=== PATIENT | female | born 1955 | race Caucasian/White ===

== ENCOUNTER → 2019-06-28 | Day surgery (SDC) | payer MEDICARE, BC ==
[2019-06-19 16:57] LABS: BASOPHILS % 0.4 % (0.0-1.0); EOSINOPHILS # (AUTO) 0.4 (0.0-0.4); EOSINOPHILS % 3.9 % (0.0-6.0); HEMATOCRIT 37.8 % (34.2-44.1); HEMOGLOBIN 12.7 g/dL (12.0-16.0); LYMPHOCYTES # (AUTO) 3.9 (1.0-3.2); MEAN CORPUSCULAR HEMOGLOBIN 32.3 pg (28-32); MEAN CORPUSCULAR HGB CONC 33.6 g/dL (31-35); MEAN CORPUSCULAR VOLUME 96.2 fL (81-99); MONOCYTES # (AUTO) 1.2 (0.2-0.8); MONOCYTES % 12.2 % (4.4-11.3); NEUTROPHILS % 42.2 % (38.7-80.0); PLATELET COUNT 303 x10e3/uL (140-360); RED BLOOD COUNT 3.93 x10e6/uL (3.6-5.1); RED CELL DISTRIBUTION WIDTH 12.7 % (11.7-14.4)
[~2019-06-28] MED LIST: ASPIRIN81 MG PO; ATENOLOL50 MG PO; ESTRADIOL1 MG PO; FENTANYL CITRATE/PF 100MCG/2 ML INJ ONE; FIBER LAX625 MG PO; HYDROCODONE PO; HYOSCYAMINE 0.125 MG TAB ONE; IRON159 MG PO; KETAMINE HCL INJ 50 MG/ML 10 ML VIAL ONE; LIPITOR10 MG PO; MELOXICAM7.5 MG PO; MIDAZOLAM HCL 2 MG/2 ML VIAL ONE; MULTI-VITAMIN1 EACH PO; PROPOFOL IV EMULSION 10 MG/ML 50 ML VIAL ONE; TYLENOL; VITAMIN B-121000 MC1 PO; VITAMIN D32000 UNI1 PO
[2019-06-28 11:25] VITALS: BP 111/81
--- NOTE | 2019-06-28 17:33 | Operative Report ---
DATE OF PROCEDURE: 06/28/2019 SURGEON: Bridger Mcdermott MD PROCEDURES: EGD with esophageal dilatation and colonoscopy with biopsies. INDICATIONS FOR EGD: Dysphagia. INDICATIONS FOR COLONOSCOPY: Surveillance colonoscopy, history of rectal polyp. MEDICATIONS: The patient was done under MAC, please see anesthesiologist's note. PROCEDURE IN DETAIL: With the patient in left lateral decubitus position, flexible fiberoptic Olympus gastroscope was introduced into the esophagus under direct visualization without any difficulty. There was some patchy erythema noted in the distal esophagus. A mild stricture was noted at the GE junction that was dilated to size 52-[place] Hernández. The scope was then advanced with ease into the stomach. Mucosa overlying the antrum and the body revealed some patchy erythema and low-grade edema and biopsies were obtained and sent to stain for H pylori. A minute ulcer was noted in the antrum along the posterior wall without active bleeding or stigmata of recent hemorrhage and biopsies were obtained. The pylorus was intubated with ease and the scope was advanced all the way to the second portion of the duodenum. The scope was then withdrawn slowly and mucosa overlying the proximal second portion and the duodenal bulb grossly appeared to be within normal limits. The scope was then withdrawn back into the stomach and retroflexed and mucosa overlying the fundus and the cardia appeared to be within normal limits. The scope was then straightened out, it was subsequently withdrawn. The patient tolerated the procedure well. IMPRESSION: 1. Esophageal stricture at GE junction dilated to size 52-[place] Hernández. 2. Gastritis, biopsied. Biopsies sent to stain for Helicobacter pylori. 3. Gastric ulcer, minute, antrum, posterior wall without active bleeding or stigmata of recent hemorrhage. Biopsies were obtained. PLAN: Follow up histology. Initiate Protonix 40 mg one p.o. q.a.m. a.c. DESCRIPTION OF PROCEDURE: The patient was then turned around and after adequate lubrication of the anal canal, a flexible fiberoptic Olympus colonoscope was inserted into the rectum with ease and advanced all the way to the cecum. The scope was then withdrawn slowly and mucosa overlying the cecum, ascending colon, transverse colon grossly other than for minimal diverticulosis appeared to be within normal limits. The descending colon appeared somewhat ahaustral and there were some patchy areas of erythema and low-grade edema and biopsies were obtained. Diverticular disease was noted also in the descending colon and sigmoid colon. The rectum appeared to be within normal limits. The scope was then retroflexed into the distal rectum and small internal hemorrhoids were noted, none of which was actively bleeding. The scope was then straightened out, it was subsequently withdrawn. The patient tolerated the procedure well. IMPRESSION: 1. Mild segmental colitis, descending colon, biopsies obtained. 2. Diverticulosis. 3. Internal hemorrhoids, none actively bleeding. PLAN: Follow up histology. Initiate high-fiber, low-fat diet. Initiate high-fiber supplement. Start Visbiome one p.o. b.i.d. The patient might benefit from a followup colonoscopy in 5 years. Bridger Mcdermott MD [facility] [place] /[id number] cc: Asya Velarde MD
== END | disposition home or self-care (01) ==
LOC: OR 06:25
PROVIDERS: ATTEND Internal Medicine Gastroenterology
DX: K22.2 Esophageal obstruction (principal); K29.50 Unspecified chronic gastritis without bleeding; K25.9 Gastric ulcer, unspecified as acute or chronic, without hemorrhage or perforation; K50.10 Crohn's disease of large intestine without complications; K57.30 Diverticulosis of large intestine without perforation or abscess without bleeding; K64.8 Other hemorrhoids; I10 Essential (primary) hypertension; Z01.810 Encounter for preprocedural cardiovascular examination; Z01.812 Encounter for preprocedural laboratory examination; Z79.82 Long term (current) use of aspirin
CPT/HCPCS: 36415; 43239; 43450; 45380; 85025; 88305; 88312; 93005; J2250; J2704; J3010; 45378

== ENCOUNTER → 2020-02-26 | Day surgery (SDC) | payer MEDICARE, BC ==
[2020-02-20 14:27] LABS: BASOPHILS % 0.3 % (0.0-1.0); EOSINOPHILS # (AUTO) 0.5 (0.0-0.4); EOSINOPHILS % 5.1 % (0.0-6.0); HEMATOCRIT 36.9 % (34.2-44.1); HEMOGLOBIN 12.3 g/dL (12.0-16.0); LYMPHOCYTES # (AUTO) 2.8 (1.0-3.2); LYMPHOCYTES % 31.9 % (18.0-39.1); MEAN CORPUSCULAR HEMOGLOBIN 32.2 pg (28-32); MEAN CORPUSCULAR HGB CONC 33.3 g/dL (31-35); MEAN CORPUSCULAR VOLUME 96.6 fL (81-99); MONOCYTES # (AUTO) 1.1 (0.2-0.8); NEUTROPHILS # (AUTO) 4.5 (2.1-6.9); NEUTROPHILS % 50.3 % (38.7-80.0); PLATELET COUNT 263 x10e3/uL (140-360); RED BLOOD COUNT 3.82 x10e6/uL (3.6-5.1); RED CELL DISTRIBUTION WIDTH 12.7 % (11.7-14.4)
--- NOTE | 2020-02-20 14:38 | Diagnostic Imaging Report ---
EXAMINATION: CHEST 2 VIEWS INDICATION: Pre-operative COMPARISON: Chest radiograph 04/10/2011 FINDINGS: LINES/TUBES:None LUNGS:The lungs are well-inflated. No focal consolidation or pulmonary edema. PLEURA:No pleural effusion or pneumothorax. MEDIASTINUM:The cardiomediastinal silhouette appears normal in size and shape. BONES/SOFT TISSUES:No acute osseous injury. ABDOMEN:No free air under the diaphragm. IMPRESSION: No focal pneumonia or pulmonary edema. Signed by: Chris Carrizales MD on 02/20/2020 2:35 PM
[~2020-02-26] MED LIST changes: +BACITRACIN ZINC 15 GM OINT ONE; +BUPIVACAINE HCL 0.5% INJ 30 ML VIAL INJ ONE; +CEFAZOLIN SOD 1 GM/NS 50ML 50 ML IV ONE; +DEXAMETHASONE SOD PHOS INJ 4 MG/ML VIAL ONE; -FENTANYL CITRATE/PF 100MCG/2 ML INJ ONE; -HYOSCYAMINE 0.125 MG TAB ONE; -KETAMINE HCL INJ 50 MG/ML 10 ML VIAL ONE; +KETOROLAC TROMETHAMINE 30 MG/ML VIAL ONE; +LIDOCAINE HCL 2% LOCAL INJ 5 ML SDV VIAL INJ ONE; +MUPIROCIN 2% OINT 22 GM TUBE ONE; +ONDANSETRON HCL INJ 2MG/ML 2ML 2 MG/ML VIAL ONE; +PANTOPRAZOLE SO40 MG PO; +PROPOFOL IV EMULSION 10 MG/ML 20 ML VIAL ONE; -PROPOFOL IV EMULSION 10 MG/ML 50 ML VIAL ONE; +SEVOFLURANE INHAL SOLN 250 ML PEN BTL ONE
--- OUTSIDE RECORDS SUMMARY | 2020-02-26 05:24 | XMS REPORT | Summary of Care ---
Author Author [facility] Address [address] [place] [address] Phone Unavailable Care Team Providers Care Pasting Machine Offbearer Name Role Phone ELIE SCHAFFER, JANETT C Unavailable Unavailable KRISTY MARTINEZ MD Unavailable Unavailable Unavailable Unavailable Functional Status Name Dates Details Functional status health issues are not documented Status: Name Dates Details Cognitive status health issues are not d ocumented Status: Problems Name Dates Details Hip pain, left (719.45, M25.552) Status: Active Medications Name Dates Details Medications not documented Allergies and Adverse Reactions Name Dates Details Allergy history not documented Status: Procedures Procedure Dates Details [U] XRAY HIP UNILATERAL MIN 2 VWS LEFT 80130 Date: 13-Oct-20 Immunization Name Dates Details Immunizations not documented Social History Name Dates Details Unknown if ever smoked Vital Signs Date Test Result Details No Known Vitals to report Results Date Description Value Details [id number] Post Op Promis 29 Survey Pain Interference: 61.5 (Normal) Pain Intensity: 51 (Normal) Physical Function: 37.6 (Normal) Satisfaction Role: 45.8 (Normal) Plan of Care Name Dates Details Planned Observations Planned Goals not documented Planned Encounters Appointment; DAYAN ZHAO P.A. On: 16-Oct-2019 9:40 Instructions Name Dates Details Instructions not documented Encounters Appointment; KRISTY BATES M.D. Encounter Diagnosis: Problem not documented On: 31-Jul-2018 14:30 Appointment; NICHO HOLDER PRajan Encounter Diagnosis: Problem not documented On: 27-Sep-2018 11:45 Appointment; KRISTY BATES M.D. Encounter Diagnosis: Problem not documented On: 30-Oct-2018 13:45 Appointment; NICHO HOLDER P.A. Encounter Diagnosis: Problem not documented On: 01-Nov-2018 13:40
--- OUTSIDE RECORDS SUMMARY | 2020-02-26 05:24 | XMS REPORT | Summary of Care ---
Author Author [facility] Address [address] [place] [address] Phone Unavailable Care Team Providers Care Shake Table Operator Name Role Phone ELIE SCHAFFER, JANETT C [...] not documented Status: Procedures Procedure Dates Details Procedures not documented Immunization Name Dates Details Immunizations not documented Social History Name Dates Details Unknown if ever smoked Vital Signs Date Test Result Details No Known Vitals to report Results Date Description Value Details Results not documented Plan of Care Name Dates Details Planned Observations Planned Goals not documented Instructions Name Dates Details Instructions not documented Encounters Appointment; KRISTY BATES M.D. Encounter Diagnosis: Problem not documented On: 31-Jul-2018 14:30 Appointment; NICHO HOLDER P.A. Encounter Diagnosis: Problem not documented On: 27-Sep-2018 11:45 Appointment; KRISTY BATES M.D. Encounter Diagnosis: Problem not documented On: 30-Oct-2018 13:45 Appointment; NICHO HOLDER PRajan Encounter Diagnosis: Problem not documented On: 01-Nov-2018 13:40 Appointment; DAYAN ZHAO P.A. Encounter Diagnosis: Problem not documented On: 16-Oct-2019 9:40
--- OUTSIDE RECORDS SUMMARY | 2020-02-26 05:24 | XMS REPORT ---
Author Author [facility] Organization [facility] Address Unknown Phone Unavailable Care Team Providers Care Ship Steward Name Role Phone KIP AWAD Unavailable Unavailable DAYAN ZHAO P.A. Unavailable Unavailable NICHO HOLDER P.A. Unavailable Unavailable KRISTY BATES M.D. Unavailable Unavailable Problems Condition Name Condition Details Condition Category Status Onset Date Resolution Date Last Treatment Date Treating Clinician Comments Hip pain, left Hip pain, left Problem Active Allergies, Adverse Reactions, Alerts This patient has no known allergies or adverse reactions. Medications This patient has no known medications. Procedures and Interventions Procedure Date / Time Performed Performing Clinici an [U] XRAY HIP UNILATERAL MIN 2 VWS LEFT [id number] 2019-10-13 00:0 0:00 Post Op Promis 29 Survey 2019-03-25 00:00:00 [U] XRAY HIP UNILATERAL MIN 2 VWS LEFT [id number] 2018-10-30 00:0 0:00 Post Op Promise 29 Survey 2018-10-04 00:00:00 [U] XRAY HIP UNILATERAL MIN 2 VWS LEFT [id number] 2018-09-24 00:0 0:00 Plan of Care Planned Activity Planned Date Comments Encounters Start Date/Time End Date/Time Encounter Type Admission Type [facility] Care Department Encounter ID 2019-10-16 09:40:00 2019-10-16 09:40:00 Appointment; LANEY ZHAO P.A. HAWKS, CHRISTOPHER, P.A. [facility] Orthopedics at [facility] [id number] 2018-11-01 13:40:00 2018-11-01 13:40:00 Appointment; NICHO HOLDER P.A. EUHUS, KELLY, P.A. [facility] Orthopedics at [facility] [id number] 2018-10-30 13:45:00 2018-10-30 13:45:00 Appointment; HAILEY BATES M.D. MATHIS, KENNETH, M.D. [facility]TP [id number] 2018-09-27 11:45:00 2018-09-27 11:45:00 Appointment; NICHO HOLDER P.A. EUHUS, KELLY, P.A. [facility] Orthopedics [id number] 2018-07-31 14:30:00 2018-07-31 14:30:00 Appointment; HAILEY BATES M.D. MATHIS, KENNETH, M.D. [facility] [id number] Results Test Description Test Time Test Comments Text Results Atomic Results Result Comments CHEST 2 VIEWS 2020-02-20 14:34:00 [place] [address] Patient Name: MERA RICKETTS MR #: [id number] : 1955 Age/Sex: 64/F Req #: [id number] Adm Physician: Ordered by: KIP AWAD MD Report #: [id number] Location: OR Room/Bed: Procedure: [id number] DX/CHEST 2 VIEWS Exam Date: 02/20/20 Exam Time: 1400 REPORT STATUS: Signed EXAMINATION: CHEST 2 VIEWS INDICATION: Pre-operative COMPARISON: Chest radiograph 04/10/2011 FINDINGS: LINES/TUBES:None LUNGS:The lungs are well-inflated. No focal consolidation or pulmonary edema. PLEURA:No pleural effusion or pneumothorax. MEDIASTINUM:The cardiomediastinal silhouette appears normal in size and shape. BONES/SOFT TISSUES:No acute osseous injury. ABDOMEN:No free air under the diaphragm. IMPRESSION: No focal pneumonia or pulmonary edema. Signed by: Dorcas Carrizales MD on 02/20/2020 2:35 PM Dictated By: DORCAS CARRIZALES MD 143 Transcribed By: MENDY on 02/20/20 143 COPY TO: KIP AWAD MD Post Op Promis 29 Survey 2019-09-15 17:32:07 Pain Interference: (test code = Pain Interference:) 61.5 1 Pain Intensity: (test code = Pain Intensity:) 51 1 Physical Function: (test code = Physical Function:) 37.6 1 Satisfaction Role: (test code = Satisfaction Role:) 45.8 1
[2020-02-26 08:25] VITALS: BP 117/81
--- NOTE | 2020-02-26 12:55 | Operative Report ---
DATE OF PROCEDURE: 02/26/2020 SURGEON: Master Sr MD PREOPERATIVE DIAGNOSIS: Left carpal tunnel syndrome. POSTOPERATIVE DIAGNOSES: 1. Left carpal tunnel syndrome. 2. Flexor tenosynovitis left wrist. PROCEDURES: 1. Left open carpal tunnel release. 2. Flexor tenosynovectomy left wrist. ANESTHESIA: General. HISTORY: The patient is a 64-year-old female with EMG-proven left carpal tunnel syndrome. Risks, benefits and alternatives of treatment were discussed with the patient. The patient is prepared to undergo the procedure as outlined. DESCRIPTION OF PROCEDURE: The patient was brought to the operating theater. After the induction of adequate general inhalation anesthesia, the patient was prepped and draped in the supine position. A time out was performed by the entire operating room team. A 2.5 cm incision was marked out in the intrathenar space. The left upper extremity was exsanguinated, and a tourniquet was inflated to a pressure of 250 mmHg. The incision was made through the skin and subcutaneous tissues and all venous tributaries were controlled with bipolar cautery. The incision was deepened through the palmar fascia until the transverse carpal ligament was identified. The ligament was sharply sectioned, taking care to protect and preserve the median nerve underlying it. After the complete width of the ligament had been transected, the distal volar forearm fascia was divided under direct view. Proliferative flexor tenosynovium was noticed to encompass the median nerve and this was radically excised. After performing this maneuver, the nerve was noted to lie adequately decompressed. The wound was copiously irrigated with bacteriostatic saline, closed with 5-0 nylon in an interrupted horizontal mattress fashion. A Marcaine field block was performed at the operative site. Tourniquet was deflated. All of the fingers pinked up nicely and a sterile bulking conforming bandage was applied to the hand and the wrist. A fiberglass splint was fashioned to maintain the wrist in a modest amount of extension. This was held in place with a loosely wrapped Brandon wrap. The patient tolerated the procedure well and was brought to the recovery room in satisfactory condition and discharged with a postoperative instruction sheet as well as a followup appointment. Master Sr MD [facility] /[id number]
== END | disposition home or self-care (01) ==
LOC: OR 05:15
PROVIDERS: ATTEND Plastic Surgery
DX: G56.02 Carpal tunnel syndrome, left upper limb (principal); M65.832 Other synovitis and tenosynovitis, left forearm; I10 Essential (primary) hypertension; K21.9 Gastro-esophageal reflux disease without esophagitis; Z01.810 Encounter for preprocedural cardiovascular examination; Z01.812 Encounter for preprocedural laboratory examination; Z01.818 Encounter for other preprocedural examination; Z11.59 Encounter for screening for other viral diseases; Z79.82 Long term (current) use of aspirin
CPT/HCPCS: 25115; 36415; 71046; 85025; 87635; 93005; J0690; J1100; J1885; J2001; J2250; J2405; J2704

== ENCOUNTER → 2020-07-23 | Day surgery (SDC) | payer MEDICARE, BC, OTHER ==
[2020-07-20 09:08] LABS: BASOPHILS % 0.5 % (0.0-1.0); EOSINOPHILS # (AUTO) 0.5 (0.0-0.4); EOSINOPHILS % 6.4 % (0.0-6.0); HEMATOCRIT 36.7 % (34.2-44.1); HEMOGLOBIN 11.9 g/dL (12.0-16.0); LYMPHOCYTES # (AUTO) 3.1 (1.0-3.2); LYMPHOCYTES % 38.9 % (18.0-39.1); MEAN CORPUSCULAR HGB CONC 32.4 g/dL (31-35); MEAN CORPUSCULAR VOLUME 98.7 fL (81-99); MONOCYTES # (AUTO) 1.2 (0.2-0.8); MONOCYTES % 15.1 % (4.4-11.3); NEUTROPHILS # (AUTO) 3.1 (2.1-6.9); NEUTROPHILS % 38.6 % (38.7-80.0); PLATELET COUNT 279 x10e3/uL (140-360); RED BLOOD COUNT 3.72 x10e6/uL (3.6-5.1); RED CELL DISTRIBUTION WIDTH 12.6 % (11.7-14.4)
[~2020-07-23] MED LIST changes: -BACITRACIN ZINC 15 GM OINT ONE; -BUPIVACAINE HCL 0.5% INJ 30 ML VIAL INJ ONE; -CEFAZOLIN SOD 1 GM/NS 50ML 50 ML IV ONE; -DEXAMETHASONE SOD PHOS INJ 4 MG/ML VIAL ONE; +FENTANYL CITRATE/PF 100MCG/2 ML INJ ONE; -KETOROLAC TROMETHAMINE 30 MG/ML VIAL ONE; -MUPIROCIN 2% OINT 22 GM TUBE ONE; -ONDANSETRON HCL INJ 2MG/ML 2ML 2 MG/ML VIAL ONE; -SEVOFLURANE INHAL SOLN 250 ML PEN BTL ONE
[2020-07-23 08:40] VITALS: BP 105/90
== END | disposition home or self-care (01) ==
LOC: OR 05:52
PROVIDERS: ATTEND Internal Medicine Gastroenterology
DX: K22.2 Esophageal obstruction (principal); K20.9 Esophagitis, unspecified; K29.70 Gastritis, unspecified, without bleeding; K31.89 Other diseases of stomach and duodenum; M54.9 Dorsalgia, unspecified; M19.90 Unspecified osteoarthritis, unspecified site; I10 Essential (primary) hypertension; E78.5 Hyperlipidemia, unspecified; K28.9 Gastrojejunal ulcer, unspecified as acute or chronic, without hemorrhage or perforation; Z01.810 Encounter for preprocedural cardiovascular examination; Z01.812 Encounter for preprocedural laboratory examination; Z11.59 Encounter for screening for other viral diseases; Z79.82 Long term (current) use of aspirin
CPT/HCPCS: 36415; 43239; 43450; 85025; 88305; 88312; 93005; J2001; J2250; J2704; J3010; U0002

== ENCOUNTER → 2024-04-24 | Day surgery (SDC) | payer MEDICARE, BC ==
[2024-04-17 09:18] LABS: BASOPHILS % 0.3 % (0.0-1.0); EOSINOPHILS # (AUTO) 0.3 (0.0-0.4); EOSINOPHILS % 3.5 % (0.0-6.0); HEMATOCRIT 36.7 % (34.2-44.1); HEMOGLOBIN 12.3 g/dL (12.0-16.0); LYMPHOCYTES # (AUTO) 2.4 (1.0-3.2); LYMPHOCYTES % 25.3 % (18.0-39.1); MEAN CORPUSCULAR HEMOGLOBIN 33.2 pg (28-32); MEAN CORPUSCULAR HGB CONC 33.5 g/dL (31-35); MEAN CORPUSCULAR VOLUME 98.9 fL (81-99); MONOCYTES # (AUTO) 1.2 (0.2-0.8); MONOCYTES % 12.7 % (4.4-11.3); NEUTROPHILS # (AUTO) 5.6 (2.1-6.9); NEUTROPHILS % 57.8 % (38.7-80.0); PLATELET COUNT 248 x10e3/uL (140-360); RED BLOOD COUNT 3.71 x10e6/uL (3.6-5.1); RED CELL DISTRIBUTION WIDTH 12.5 % (11.7-14.4); WHITE BLOOD COUNT 9.63 x10e3/uL (4.8-10.8)
[~2024-04-24] MED LIST changes: +GLUCOSAMIN-CHO1 EACH; +LEVOTHYROXINE50 MCG PO; +METOCLOPRAMIDE HCL 10 MG/2ML VIAL ONE; -MIDAZOLAM HCL 2 MG/2 ML VIAL ONE; +MISOPROSTOL100 MCG PO; +VITAMIN C1000 MG PO
[2024-04-24] MEDS: LACTATED RINGER'S 1,000 ML ONE (05:53)
[2024-04-24 08:29] VITALS: TEMP 97.6
[2024-04-24 08:45] VITALS: BP 114/76; PULSE 83; RESP 16; O2SAT 95
== END | disposition home or self-care (01) ==
LOC: OR 05:49
PROVIDERS: ATTEND Internal Medicine Gastroenterology
DX: K22.2 Esophageal obstruction (principal); Z86.010 Personal history of colon polyps; K31.7 Polyp of stomach and duodenum; K29.70 Gastritis, unspecified, without bleeding; K57.10 Diverticulosis of small intestine without perforation or abscess without bleeding; K57.30 Diverticulosis of large intestine without perforation or abscess without bleeding; D64.9 Anemia, unspecified; I10 Essential (primary) hypertension; E78.5 Hyperlipidemia, unspecified; E03.9 Hypothyroidism, unspecified; Z01.810 Encounter for preprocedural cardiovascular examination; Z01.812 Encounter for preprocedural laboratory examination; Z79.82 Long term (current) use of aspirin; Z79.1 Long term (current) use of non-steroidal anti-inflammatories (NSAID); Z79.899 Other long term (current) drug therapy
CPT/HCPCS: 36415; 43239; 43450; 45378; 85025; 88305; 88342; 93005; J2001; J2765